=== PATIENT | male | born 1985 | race Caucasian/White ===

== ENCOUNTER 2020-05-19 05:30 | Day surgery (SDC) | payer OTHER, SELFPAY ==
[~2020-05-19] VITALS: Ht 182.9 cm; Wt 72.6 kg
[2020-05-19] MEDS ORDERED: MIDAZOLAM 5 MG/5 ML VIAL ONE (07:32)
[2020-05-19] MEDS ORDERED: fentaNYL citrate 0.05 MG/ML VIAL ONE (07:32)
[2020-05-19] MEDS ORDERED: LIDOCAINE 2% 100 MG/5 ML UJET TP ONE (07:32)
[2020-05-19] MEDS ORDERED: fentaNYL citrate 0.05 MG/ML VIAL IVP ONE (09:15)
[2020-05-19] MEDS ORDERED: MIDAZOLAM 2 MG/2 ML VIAL IVP ONE (09:15)
== END 2020-05-19 08:50 | disposition home or self-care (01) ==
LOC: MDS 05:30 → MMU 05:31 → MDS 08:50
PROVIDERS: ATTEND Internal Medicine Gastroenterology
DX: K51.00 Ulcerative (chronic) pancolitis without complications (principal); R10.11 Right upper quadrant pain; Z20.828 Contact with and (suspected) exposure to other viral communicable diseases; Z79.899 Other long term (current) drug therapy
CPT/HCPCS: 43235; 45378; J2250; J3010; U0003